=== PATIENT | female | born 1995 | race Caucasian/White ===

== ENCOUNTER 2017-05-15 16:01 | Inpatient (IN) | payer MEDICAID ==
[~2017-05-15] VITALS: Ht 157.5 cm; Wt 83.4 kg
[2017-05-15 16:55] VITALS: Ht 157.5 cm; Wt 83.4 kg
[2017-05-15 16:57] VITALS: BP 162/101; PULSE 81; RESP 20
[2017-05-15 17:15] LABS: BASOPHILS % 0.4 % (0.0-2.0); EOSINOPHILS # 0.1 10^3/ul (0.0-0.5); EOSINOPHILS % 0.7 % (0.0-7.0); HEMATOCRIT 35.2 % (37.0-47.0); HEMOGLOBIN 12.2 g/dl (12.0-16.0); LYMPHOCYTES # 2.1 10^3/ul (0.8-2.9); LYMPHOCYTES % 19.7 % (15.0-51.0); MEAN CORPUSCULAR HEMOGLOBIN 30.7 pg (29.0-33.0); MEAN CORPUSCULAR HGB CONC 34.7 g/dl (32.0-37.0); MEAN CORPUSCULAR VOLUME 88.4 fl (82.0-101.0); MEAN PLATELET VOLUME 12.4 fl (7.4-10.4); MONOCYTE # 0.8 10^3/ul (0.3-0.9); MONOCYTES % 7.6 % (0.0-11.0); NEUTROPHILS % 70.3 % (39.0-77.0); PLATELET COUNT 240 10^3/UL (140-415); RED BLOOD COUNT 3.98 10^6/ul (4.20-5.40); RED CELL DISTRIBUTION WIDTH 14.2 % (11.5-14.5); WHITE BLOOD COUNT 10.7 10^3/ul (4.8-10.8)
[2017-05-15 17:30] LABS: ADD UMIC YES; UR ASCORBIC ACID NEGATIVE (NEGATIVE); UR BACTERIA FEW /HPF (NONE SEEN); UR BILIRUBIN (Dip) NEGATIVE (NEGATIVE); UR BLOOD (Dip) NEGATIVE (NEGATIVE); UR CLARITY CLOUDY (CLEAR); UR COLOR YELLOW (YELLOW); UR GLUCOSE (Dip) NEGATIVE (NEGATIVE); UR KETONES (Dip) NEGATIVE (NEGATIVE); UR LEUKOCYTE ESTERASE (Dip) 1+ Leu/ul (NEGATIVE); UR NITRITE (Dip) NEGATIVE (NEGATIVE); UR RBC 4 /HPF (0-5); UR SPECIFIC GRAVITY (Dip) 1.018 (1.003-1.030); UR SQUAMOUS EPITHELIAL CELL MANY /HPF (FEW); UR TOTAL PROTEIN (Dip) 3+ mg/dl (NEGATIVE); UR UROBILINOGEN (Dip) NEGATIVE (NEGATIVE)
[2017-05-15] MEDS ORDERED: MAGNESIUM SULFATE 4 GM/100 ML 100 ML IVPB ONE (17:30)
[2017-05-15 17:39] LABS: INR 0.99; PROTIME 13.1 Sec (12.2-14.2)
[2017-05-15 17:40] LABS: PARTIAL THROMBOPLASTIN TIME 27.4 Sec (25.0-35.0)
[2017-05-15 17:42] LABS: ALBUMIN 2.9 g/dl (3.3-4.9); ALBUMIN/GLOBULIN RATIO 0.87; BILIRUBIN,INDIRECT 0.1 mg/dl (0-1.1); BILIRUBIN,TOTAL 0.1 mg/dl (0.2-1.3); CALCIUM 8.5 mg/dl (8.4-10.2); CREATININE 0.57 mg/dl (0.44-1.00); POTASSIUM 4.4 mmol/L (3.5-5.1); TOTAL PROTEIN 6.2 g/dl (6.1-8.1)
--- NOTE | 2017-05-15 17:45 | RADRPT ---
PROCEDURE: OB ultrasound for biophysical profile CLINICAL INDICATION: PIH. TECHNIQUE: Multiple sonographic images of the pelvis were obtained. Transabdominal view of the gr avid uterus are available for review. The images were reviewed on a PACS workstation. COMPARISON: OB ultrasound from the same date. FINDINGS: breathing movement = 2/2 tone = 2/2 motion = 2/2 Quantitative amniotic fluid volume = 2/2 KEENA = 8.8 cm Single live intrauterine with cardiac activity at 139 beats per minute. There is a anterior placenta without previa or abruption. IMPRESSION: 1. Single living intrauterine gestation in cephalic position. 2. Biophysical profile = 8/8. 3. KEENA = 8 point a cm. RPTAT: [facility] Physician Maria Esther Date Time Electronically viewed and signed by Physician Maria Esther on 05/15/2017 17:44 /
--- NOTE | 2017-05-15 17:50 | RADRPT ---
PROCEDURE: US OB. CLINICAL INDICATION: PIH. TECHNIQUE: Multiple sonographic images of the pelvis were obtained. Transabdominal imaging only w as performed. The images were reviewed on a PACS workstation. COMPARISON: Biophysical profile from the same date. FINDINGS: There is a single living intrauterine gestation in cephalic position. There is an anterior placenta. There is no evidence of previa. Adequate amnionic fluid is demonstrated. The amniotic fluid index is cm. Active cardiac motion is seen at 139 beats per minute. The biparietal diameter is 8.69 cm. The head circumference is 31.35 cm. The abdominal circumference is . The femur length is 31.9 cm 6.85 cm. Consistent with: 78-sxsx-5-day gestation. The estimated weight is 2692 plus or minus 404 g. IMPRESSION: 1. Single living intrauterine gestation in cephalic position with a mean gestational age by ultraso und of 35 weeks 2 days plus or minus 17-day with estimated date of delivery of 06/17/2017 by ultraso und criteria P RPTAT: [facility] Physician Maria Esther Date Time Electronically viewed and signed by Physician Maria Esther on 05/15/2017 17:49 /
[2017-05-15] MEDS ORDERED: MISOPROSTOL 200 MCG TAB PR PRN (18:00)
[2017-05-15] MEDS ORDERED: CARBOPROST 250 MCG INJ IM PRN (18:00)
[2017-05-15] MEDS ORDERED: METHYLERGONOVINE 0.2 MG INJ IM PRN (18:00)
[2017-05-15] MEDS ORDERED: OXYTOCIN 30 UNITS/LR 500 ML IV PRN (18:00)
[2017-05-15] MEDS ORDERED: CEFAZOLIN 2 GM/50 ML (PMX) 50 ML IV SCH (18:00)
[2017-05-15] MEDS: MAGNESIUM SULFATE 20 GM/500 ML 500 ML IV SCH (18:06)
[2017-05-15] MEDS: LACTATED RINGER'S 1,000 ML IV SCH (18:07)
[2017-05-15] MEDS ORDERED: LACTATED RINGER'S 1,000 ML IV ONE (18:23)
[2017-05-15] MEDS ORDERED: ONDANSETRON 4 MG INJ IV ONE (18:30)
[2017-05-15] MEDS ORDERED: CITRIC ACID/NA CITRATE 30 ML CUP PO ONE (18:30)
--- NOTE | 2017-05-15 19:47 | TRIAGE ---
OB Triage Datetime Report Generated by CPN: 05/15/2017 19:46 Datetime: 05/15/2017 18:32 Assessment Type: Admission Assessment Vaginal Bleeding: None Maternal Assessment Level of Consciousness: Fully Conscious DTR's/Clonus: DTRs 2+; No Clonus Headache: Denies Blurred Vision: No Respiratory Effort: Unlabored; Regular Rhythm; Equal Expansion Breath Sounds, Left: Clear and Equal Breath Sounds, Right: Clear and Equal Nausea/Vomiting: Denies RUQ Epigastric Pain: Denies Facial Edema: None Fall Risk Assessment History of Falling: (0) No Secondary Diagnosis: (0) No Ambulatory Aid: (0) Bedrest/Nurse Assist IV Therapy: (0) No Gait: (0) Normal/Bedrest/Immobile Mental Status: (0) Oriented to Own Ability Fall Score: 0 Fall Risk Score Definition: No Risk: No action required Datetime: 05/15/2017 17:01 Maternal Assessment Level of Consciousness: Fully Conscious DTR's/Clonus: DTRs 2+ Headache: Denies Blurred Vision: Yes Nausea/Vomiting: Denies RUQ Epigastric Pain: Denies Facial Edema: None Labor Evaluation Frequency: 0 Monitor Mode: External Resting Tone [place]: Relaxed Heart Rate FHR Baseline Rate: 130 Monitor Mode: External US FHR Baseline Changes: No Baseline Change Variability: Moderate 6-25 bpm Accelerations: 15X15 Decelerations: None Category: Category I Datetime: 05/15/2017 16:36 Labor Evaluation Frequency: 0 Monitor Mode: External Resting Tone [place]: Relaxed Heart Rate FHR Baseline Rate: 130 Monitor Mode: External US FHR Baseline Changes: No Baseline Change Variability: Moderate 6-25 bpm Accelerations: 15X15 Decelerations: None Category: Category I Datetime: 05/15/2017 16:33 Assessment Type: Triage Maternal Assessment Level of Consciousness: Fully Conscious DTR's/Clonus: DTRs 2+; No Clonus Headache: Denies Blurred Vision: No Respiratory Effort: Unlabored; Regular Rhythm; Equal Expansion Breath Sounds, Left: Clear and Equal Breath Sounds, Right: Clear and Equal Nausea/Vomiting: Denies RUQ Epigastric Pain: Denies Facial Edema: None Fall Risk Assessment History of Falling: (0) No Secondary Diagnosis: (0) No Ambulatory Aid: (0) Bedrest/Nurse Assist IV Therapy: (0) No Gait: (0) Normal/Bedrest/Immobile Mental Status: (0) Oriented to Own Ability Fall Score: 0 Fall Risk Score Definition: No Risk: No action required Datetime: 05/15/2017 16:31 Maternal Assessment Level of Consciousness: Fully Conscious DTR's/Clonus: DTRs 2+ Headache: Denies Blurred Vision: Yes Breath Sounds, Left: Clear and Equal Breath Sounds, Right: Clear and Equal Nausea/Vomiting: Denies RUQ Epigastric Pain: Denies Facial Edema: None Datetime: 05/15/2017 16:22 Time of Arrival: 05/15/2017 16:22 EGA: 35.0 Arrived By: Ambulatory Arrived From: Office Chief Complaint: today is first office visit, bp 160/97. sent to triage to r/o preeclampsia. [facility] ed in antepartum Movement: Present Contractions: Denies/Absent Rupture of Membranes: Denies Vaginal Bleeding: None Vaginal Discharge: Denies Recent Sexual Intercouse: Denies Abdominal Trauma: Not Applicable Patient Complaints: Back Pain Time Provider Notified: 05/15/2017 17:00 Provider Notified: eliza
[2017-05-15 19:49] LABS: ADD UMIC YES; UR ASCORBIC ACID NEGATIVE (NEGATIVE); UR BACTERIA FEW /HPF (NONE SEEN); UR BILIRUBIN (Dip) NEGATIVE (NEGATIVE); UR BLOOD (Dip) 1+ mg/dL (NEGATIVE); UR CLARITY CLEAR (CLEAR); UR COLOR STRAW (YELLOW); UR GLUCOSE (Dip) NEGATIVE (NEGATIVE); UR KETONES (Dip) NEGATIVE (NEGATIVE); UR LEUKOCYTE ESTERASE (Dip) NEGATIVE Leu/ul (NEGATIVE); UR NITRITE (Dip) NEGATIVE (NEGATIVE); UR RBC 2 /HPF (0-5); UR SPECIFIC GRAVITY (Dip) 1.008 (1.003-1.030); UR TOTAL PROTEIN (Dip) 3+ mg/dl (NEGATIVE); UR UROBILINOGEN (Dip) NEGATIVE (NEGATIVE)
[2017-05-15 20:16] LABS: BARBITURATES Negative (NEGATIVE); BENZODIAZEPINES Negative (NEGATIVE); CANNABINOIDS Negative (NEGATIVE); COCAINE Negative (NEGATIVE); OPIATES Negative (NEGATIVE)
[2017-05-15] MEDS ORDERED: LABETALOL HCL 20MG INJ ONE (20:22)
[2017-05-15] MEDS ORDERED: OXYTOCIN 30 UNITS/LR 500 ML IVPB ONE (20:30)
[2017-05-15] MEDS ORDERED: LABETALOL HCL 20MG INJ IV ONE (20:30)
--- NOTE | 2017-05-15 21:16 | HP ---
Date/Time of Note Date/Time of Note DATE: 05/15/17 TIME: 21:02 OB - History Hx of Present Free Text/Dictation 21 y.o primigravida at 35weeks was sent from her OB for further evaluation for elevated B.P which was first time visit for his office for visit. Her previuosprenatal care was limited to only x4 visitbut according to patient ,there wasnt any problem. Initial blood pressure 174/102 +++ proteinuria even cath urine +++protein EFW 2692 magnesium sulfate was initiated MFM (Dr Hassan) was consulted who recommended to deliver Primary section was prepared. Chief Complaint: high B.P Estimated Due Date: Jun 19, 2017 : 1 Para: 0 Spontaneous : 0 Therapeutic : 0 Care: Limited Care Ultrasounds: Other Obstetrical Complications: Gestational Hypertension Past Family/Social History * Past Medical, Surgical, Family and Obstetric Histories reviewed from chart. Blood Type: O+ Rubella: immune RPR/VDRL: Negative GBS Status: Unknown HBsAG: Negative OB Admission Exam Vital Signs Vital Signs Vital Signs Date Time Temp Pulse Resp B/P Pulse Ox O2 Delivery O2 Flow Rate FiO2 05/15/17 16:57 98.0 81 20 162/101 Room Air Physical Exam HEENT: WNL Heart: Rhythm Normal Lungs: Clear, Equal Abdomen: WNL Extremities: Normal Reflexes: Normal Cervical Dilatation: other Effacement: Other Station: Other Membranes: Intact Amniotic Fluid: Unevaluable Heart Rate: 130's Accelerations: Accelerations Present Decelerations: No Decelerations Varibility: Moderate Contractions on Admission: None Last 72 hours Lab Results CBC & BMP 05/15/17 17:00 Liver Function Test 05/15/17 17:00 Alanine Aminotransferase (ALT/SGPT) 33 Albumin 2.9 L Alkaline Phosphatase 166 H Aspartate Amino Transf (AST/SGOT) 33 Direct Bilirubin 0.00 Total Protein 6.2 OB Assessment/Plan Reason for admission: other (high blood pressure) Plan: Section LEXIE MERCER MD May 15, 2017 21:13
[2017-05-15] MEDS ORDERED: FENTAnyl 50 MCG/ML VIAL ONE (21:18)
[2017-05-15] MEDS ORDERED: morphine SULFATE/PF (10 MG/10 ML) INJ ONE (21:18)
[2017-05-15] MEDS ORDERED: METOCLOPRAMIDE 10 MG INJ ONE (21:33)
[2017-05-15] MEDS ORDERED: OXYTOCIN 30 UNITS/LR 500 ML IV ONE (22:19)
[2017-05-15] MEDS ORDERED: ONDANSETRON 4 MG INJ IV PRN (23:00)
[2017-05-15] MEDS ORDERED: NALOXONE (0.4 MG/ML) INJ IV PRN (23:00)
[2017-05-15] MEDS ORDERED: DIPHENHYDRAMINE 50 MG INJ IV PRN (23:00)
[2017-05-15] MEDS ORDERED: TRIMETHOBENZAMIDE 100 MG/ML VIAL IM PRN (23:00)
[2017-05-15] MEDS ORDERED: NALBUPHINE HCL (10 MG/1 ML) INJ IV PRN (23:00)
[2017-05-15] MEDS ORDERED: HYDROmorphONE 1 MG/ML SYG IV PRN ×2 (23:00)
--- NOTE | 2017-05-15 23:13 | OPR ---
Operative Report Planned Procedure Free Text/Dictation 21y.o primigravida at 35w severe PIH Procedure date May 15, 2017 Procedure(s) primary low transverse section Performed by: LEXIE MERCER MD Assisting provider: CARINA GUILLORY MD Anesthesiologist: PHILL BANKS PA-C Anesthesia Type: general spinal Procedure Description Under satisfactory [] anesthesia, the patient was prepped and draped and placed in a supine position, tilted to the left. Pfannenstiel incision was made, carried through the subcutaneous tissue. Bleeders brought under control with electrocautery. Fascia incised to the length of the incision. Rectus muscles from the fascia, divided midline. Peritoneum exposed, entered peritoneal cavity . Exploration of abdomen revealed gravid uterus. . Transverse incision was made in the lower segment of the uterus above the uterovesical reflection.. Amniotic sac ruptured. [revealed clear] amniotic fluid noted. [] Nasal oropharyngeal suction was performed. after the delayed clamping done. The baby was handed to the team for immediate attention. The placenta was delivered manually intact.after cord blood obtained. Uterine cavity was cleaned with dry sponge. Uterus closed in 2 layers using [#1 and ) ch gut] in continuous fashion. Peritoneal cavity irrigated with warm saline. Sponge, needle and instrument count reported to be correct. Abdominal peritoneum closed with och gut[] continuously. Rectus muscle approximated with [och gut]. Fascia closed with #1 vicryl in x2 segment and subcut tissue was irrigated iwith water and this layer wsa approximated with 00 plain gut [], and skin closed with insorb . Estimated blood loss [600]mL. Urine bag contained [400]mL of urine Post-Procedure Findings: Live Baby [male ], Apgars [8] and 9], weight [2155], position [SHERIDAN], [] presentation [vx]cord. Specimen removed: Yes Specimen description placenta Complications: None Pt Condition post procedure: stable Disposition: PACU Physician Certification I, the undersigned physician, hereby certify that I have discussed the procedure described in this consent form with this patient (or the patient's legal healthcare sales representative), including: * The risk and benefits of the procedure; * Any adverse reactions that may reasonably be expected to occur; * Any alternative efficacious methods of treatment which may be medically viable ; * The potential problems that may occur during recuperation; * Potential for blood transfusion and associated risks/benefits; and * Any research or economic interest I may have regarding this treatment. I further certify that the patient/legally responsible person was encouraged to ask question and that all questions were answered. LEXIE MERCER MD May 15, 2017 23:12
[2017-05-16] VITALS (18 sets, daily range): BP systolic 136–175; BP diastolic 69–99; PULSE 94–108; RESP 18–21
[2017-05-16] MEDS ORDERED: LABETALOL 100 MG TAB PO SCH
[2017-05-16] MEDS: KETOROLAC 30 MG INJ IV PRN ×3 (00:08→20:22)
[2017-05-16] MEDS ORDERED: LABETALOL 100 MG TAB PO ONE (01:30)
[2017-05-16] MEDS: OXYTOCIN 30 UNITS/LR 500 ML IV SCH ×7 (02:44→20:30)
[2017-05-16] MEDS ORDERED: METHYLERGONOVINE 0.2 MG INJ IM PRN (03:00)
[2017-05-16] MEDS ORDERED: LANOLIN 7 GM TUBE TOP PRN (03:00)
[2017-05-16] MEDS ORDERED: ZOLPIDEM 5 MG TAB PO PRN (03:00)
[2017-05-16] MEDS ORDERED: MISOPROSTOL 200 MCG TAB PR PRN (03:00)
[2017-05-16] MEDS ORDERED: DIPHENHYDRAMINE 50 MG INJ IV PRN (03:00)
[2017-05-16] MEDS ORDERED: CARBOPROST 250 MCG INJ IM PRN (03:00)
[2017-05-16] MEDS ORDERED: ONDANSETRON 4 MG INJ IV PRN (03:00)
[2017-05-16] MEDS ORDERED: OXYTOCIN 30 UNITS/LR 500 ML IV PRN (03:00)
[2017-05-16] MEDS: MAGNESIUM SULFATE 20 GM/500 ML 500 ML IV SCH ×2 (05:51→14:00)
[2017-05-16] MEDS: LACTATED RINGER'S 1,000 ML IV SCH ×3 (07:15→13:19)
[2017-05-16] MEDS: SENNA/DOCUSATE NA (8.6MG/50MG) TAB PO SCH ×2 (08:31→20:22)
[2017-05-16] MEDS: LABETALOL 100 MG TAB PO SCH ×2 (08:31→20:22)
--- NOTE | 2017-05-16 10:39 | PN ---
Date/Time of Note Date/Time of Note DATE: 05/16/17 TIME: 10:37 OB Subjective Subjective Subjective Post day 1 Patient's blood pressure running on 160s over 90s currently on magnesium sulfate and labetalol 200 mg twice daily we will continue the present treatment , her abdomen soft weak bowel sounds lochia moderate extremities reflexes are within normal will continue treatment for severe PIH. LEONEL JAIME MD May 16, 2017 10:39
[2017-05-16 10:54] LABS: BASOPHILS % 0.2 % (0.0-2.0); EOSINOPHILS % 0.3 % (0.0-7.0); HEMATOCRIT 33.7 % (37.0-47.0); HEMOGLOBIN 11.7 g/dl (12.0-16.0); LYMPHOCYTES # 1.4 10^3/ul (0.8-2.9); LYMPHOCYTES % 11.8 % (15.0-51.0); MEAN CORPUSCULAR HEMOGLOBIN 30.5 pg (29.0-33.0); MEAN CORPUSCULAR HGB CONC 34.7 g/dl (32.0-37.0); MEAN CORPUSCULAR VOLUME 87.8 fl (82.0-101.0); MEAN PLATELET VOLUME 12.3 fl (7.4-10.4); MONOCYTE # 0.7 10^3/ul (0.3-0.9); MONOCYTES % 5.7 % (0.0-11.0); NEUTROPHILS % 81.3 % (39.0-77.0); PLATELET COUNT 232 10^3/UL (140-415); RED BLOOD COUNT 3.84 10^6/ul (4.20-5.40); RED CELL DISTRIBUTION WIDTH 14.2 % (11.5-14.5); WHITE BLOOD COUNT 12.1 10^3/ul (4.8-10.8)
[2017-05-16 11:16] LABS: ALBUMIN 2.4 g/dl (3.3-4.9); ALBUMIN/GLOBULIN RATIO 0.82; BILIRUBIN,INDIRECT 0.1 mg/dl (0-1.1); BILIRUBIN,TOTAL 0.1 mg/dl (0.2-1.3); CREATININE 0.5 mg/dl (0.44-1.00); POTASSIUM 4.2 mmol/L (3.5-5.1); TOTAL PROTEIN 5.3 g/dl (6.1-8.1); URIC ACID 6.5 mg/dl (3.1-7.9)
[2017-05-16 11:49] LABS: ADD UMIC YES; UR ASCORBIC ACID NEGATIVE (NEGATIVE); UR BILIRUBIN (Dip) NEGATIVE (NEGATIVE); UR BLOOD (Dip) 2+ mg/dL (NEGATIVE); UR CLARITY CLEAR (CLEAR); UR COLOR YELLOW (YELLOW); UR GLUCOSE (Dip) NEGATIVE (NEGATIVE); UR KETONES (Dip) NEGATIVE (NEGATIVE); UR LEUKOCYTE ESTERASE (Dip) NEGATIVE Leu/ul (NEGATIVE); UR MUCUS FEW /HPF (NONE SEEN); UR NITRITE (Dip) NEGATIVE (NEGATIVE); UR RBC 16 /HPF (0-5); UR TOTAL PROTEIN (Dip) 2+ mg/dl (NEGATIVE); UR UROBILINOGEN (Dip) NEGATIVE (NEGATIVE)
[2017-05-16 12:01] LABS: INR 1.05; PROTIME 13.7 Sec (12.2-14.2); PT RATIO 1.1
[2017-05-16 13:20] LABS: FIBRIN SPLIT PRODUCT <10 ug/ml (<10)
[2017-05-16] MEDS ORDERED: OXYCODONE/ACETAMINOPHEN (5/325) TAB PO PRN (21:30)
[2017-05-17] VITALS (7 sets, daily range): BP systolic 118–155; BP diastolic 75–96; PULSE 82–90; RESP 14–20
[2017-05-17] MEDS: OXYTOCIN 30 UNITS/LR 500 ML IV SCH ×6 (00:30→16:30)
[2017-05-17] MEDS: LACTATED RINGER'S 1,000 ML IV SCH ×3 (01:00→17:00)
[2017-05-17] MEDS: IBUPROFEN 600 MG TAB PO SCH ×5 (05:36→23:55)
[2017-05-17] MEDS: SENNA/DOCUSATE NA (8.6MG/50MG) TAB PO SCH ×2 (08:47→20:44)
[2017-05-17] MEDS: LABETALOL 100 MG TAB PO SCH ×2 (08:47→20:47)
--- NOTE | 2017-05-17 10:53 | PN ---
Date/Time of Note Date/Time of Note DATE: 05/17/17 TIME: 10:51 OB Subjective Subjective Subjective May 172016 Post C section day 2 Doing Well Afebrile Ambulatory Chest Clear Breasts are soft , Nipples are intact Abdomen is soft Fundus is firm Moderate amount of lochia Incision is clean ,No evidence of infection No calf tenderness No ankle edema Mag sulfate was discontinued Laboratory Tests Test 05/16/17 11:15 05/16/17 11:25 05/16/17 18:15 Urine Color YELLOW Urine Clarity CLEAR Urine pH 6.0 Urine Specific [place] 1.020 Urine Ketones NEGATIVEmg/dL Urine Nitrite NEGATIVEmg/dL Urine Bilirubin NEGATIVEmg/dL Urine Urobilinogen NEGATIVEmg/dL Urine Leukocyte Esterase NEGATIVELeu/ul Urine Microscopic RBC 16/HPF Urine Microscopic WBC 7/HPF Urine Hyaline Casts FEW/HPF Urine Granular Casts FEW/HPF Urine Mucus FEW/HPF Urine Hemoglobin 2+mg/dL Urine Glucose NEGATIVEmg/dL Urine Total Protein 2+mg/dl Prothrombin Time 13.7Sec Prothrombin Time Ratio 1.1 INR International Normalized Ratio 1.05 Activated Partial Thromboplast Time 28.0Sec Fibrinogen 581.0mg/dl Plasma Fibrin Degradation Products <10ug/ml Magnesium Level 5.0mg/dl 5.6mg/dl Current Medications Medications (Trade) Dose Ordered Sig/Jonathan Route PRN Reason Start Time Stop Time Status Last Admin Dose Admin Lactated Ringer's 1,000 ml @ 125 mls/hr Q8H IV 05/15/17 17:00 05/16/17 13:19 Magnesium Sulfate 100 ml @ 25 mls/hr ONCE ONCE IVPB 05/15/17 17:30 05/15/17 21:29 DC 05/15/17 17:37 Magnesium Sulfate 500 ml @ 50 mls/hr Q10H IV 05/15/17 17:30 05/16/17 21:37 DC 05/16/17 14:00 Cefazolin Sodium/ Dextrose 50 ml @ 100 mls/hr ONCE IV 05/15/17 18:00 05/16/17 02:40 DC Oxytocin/Lactated Ringer's 500 ml @ 0 mls/hr ONCE PRN IV For Hemorrhage Management 05/15/17 18:00 05/16/17 02:40 DC Methylergonovine Maleate (Methergine) 0.2 mg ONCE PRN IM VAGINAL BLEEDING 05/15/17 18:00 05/16/17 02:40 DC Carboprost Tromethamine (Hemabate) 250 mcg ONCE PRN IM VAGINAL BLEEDING 05/15/17 18:00 05/16/17 02:40 DC Misoprostol 1000 mcg 1,000 mcg ONCE PRN NC VAGINAL BLEEDING 05/15/17 18:00 05/16/17 02:40 DC Lactated Ringer's (Lr) 1,000 ml @ 1,000 mls/hr Q1H ONCE IV 05/15/17 18:23 05/15/17 19:22 DC Ondansetron HCl (Zofran Inj) 4 mg pre-procedure ONCE IV 05/15/17 18:30 05/15/17 18:34 DC 05/15/17 20:33 Citric Acid/ Sodium Citrate 30 ml 30 ml PRE-OP ONCE PO 05/15/17 18:30 05/15/17 18:34 DC 05/15/17 20:29 Oxytocin/Lactated Ringer's 500 ml @ 125 mls/hr ONCE ONCE IVPB 05/15/17 20:30 05/16/17 00:29 DC 05/15/17 23:49 Oxytocin/Lactated Ringer's 500 ml @ 125 mls/hr Q4H IV 05/15/17 20:30 05/16/17 05:54 Labetalol HCl (Labetalol) 20 mg STK-MED ONCE .ROUTE 05/15/17 20:22 05/15/17 20:23 DC Labetalol HCl (Labetalol) 20 mg ONCE ONCE IV 05/15/17 20:30 05/15/17 20:31 DC 05/15/17 20:29 Morphine Sulfate (Duramorph) 10 mg STK-MED ONCE .ROUTE 05/15/17 21:18 05/15/17 21:19 DC Fentanyl (Sublimaze) 100 mcg STK-MED ONCE .ROUTE 05/15/17 21:18 05/15/17 21:19 DC Metoclopramide HCl 10 mg 10 mg STK-MED ONCE .ROUTE 05/15/17 21:33 05/15/17 21:34 DC Oxytocin/Lactated Ringer's 500 ml @ ud STK-MED ONCE IV 05/15/17 22:19 05/15/17 22:20 DC Naloxone HCl (Narcan) 0.1 mg Q2M PRN IV FOR RESP RATE 8 OR LESS 05/15/17 23:00 05/16/17 21:29 DC Ketorolac Tromethamine (Toradol) 30 mg Q6H PRN IV PAIN 05/15/17 23:00 05/16/17 21:29 DC 05/16/17 20:22 Hydromorphone HCl (Dilaudid) 0.2 mg Q3H PRN IV PAIN LEVEL 1-5 05/15/17 23:00 05/16/17 21:29 DC Hydromorphone HCl (Dilaudid) 0.4 mg Q3H PRN IV PAIN LEVEL 6-10 05/15/17 23:00 05/16/17 21:29 DC Diphenhydramine HCl (Benadryl) 25 mg Q6H PRN IV ITCHING 05/15/17 23:00 05/16/17 21:29 DC Nalbuphine HCl (Nubain) 5 mg ONCE PRN IV ITCHING 05/15/17 23:00 05/16/17 21:29 DC Ondansetron HCl (Zofran Inj) 4 mg Q6H PRN IV NAUSEA AND/OR VOMITING 05/15/17 23:00 05/16/17 21:29 DC Trimethobenzamide HCl (Tigan) 200 mg Q6H PRN IM NAUSEA AND/OR VOMITING 05/15/17 23:00 05/16/17 21:29 DC Miscellaneous Information (* Miscellaneous Pharmacy Order) Duramorph: 0.2 mg Spi... GIVEN ONCE XX 05/15/17 21:30 05/15/17 22:45 DC Labetalol HCl (Normodyne) 100 mg BID PO 05/16/17 00:00 05/16/17 01:25 DC 05/15/17 23:50 Labetalol HCl (Normodyne) 200 mg BID PO 05/16/17 09:00 05/17/17 08:47 Labetalol HCl (Normodyne) 100 mg ONCE ONCE PO 05/16/17 01:30 05/16/17 01:31 DC 05/16/17 01:32 Oxycodone/ Acetaminophen (Percocet (5/ 325)) 1 tab Q4H PRN PO PAIN LEVEL 4-6 05/16/17 21:30 Oxycodone/ Acetaminophen (Percocet (5/ 325)) 2 tab Q4H PRN PO PAIN LEVEL 7-10 05/16/17 21:30 Ibuprofen (Motrin) 600 mg Q6 PO 05/17/17 00:00 05/17/17 05:36 Simethicone (Mylicon) 160 mg Q8H PRN PO DISTENSION/GAS/BLOATING 05/16/17 03:00 05/17/17 06:06 Senna/Docusate Sodium (Senokot-S) 1 tab BID PO 05/16/17 09:00 05/17/17 08:47 Lanolin (Qoq-N-Zmwmiy) 1 applic BEDSIDE MEDICATION PRN TOP BEDSIDE FOR BIBIANA TO NIPPLES 05/16/17 03:00 Diphtheria/ Tetanus/Acell Pertussis 0.5 ml 0.5 ml ONCE ONCE IM* 05/18/17 09:00 05/18/17 09:01 Oxytocin/Lactated Ringer's 500 ml @ 0 mls/hr ONCE PRN IV For Hemorrhage Management 05/16/17 03:00 Methylergonovine Maleate (Methergine) 0.2 mg ONCE PRN IM VAGINAL BLEEDING 05/16/17 03:00 Carboprost Tromethamine (Hemabate) 250 mcg ONCE PRN IM VAGINAL BLEEDING 05/16/17 03:00 Misoprostol (Cytotec) 1,000 mcg ONCE PRN NC VAGINAL BLEEDING 05/16/17 03:00 Diphenhydramine HCl (Benadryl) 25 mg Q6H PRN IV PRURITUS 05/16/17 03:00 Ondansetron HCl (Zofran Inj) 4 mg Q6H PRN IV NAUSEA AND/OR VOMITING 05/16/17 03:00 Zolpidem Tartrate (Ambien) 5 mg HS MAY REPEAT X 1 PRN PO INSOMNIA 05/16/17 03:00 New born is doing well, Breast feeding CARINA GUILLORY MD May 17, 2017 10:53
[2017-05-17] MEDS: OXYCODONE/ACETAMINOPHEN (5/325) TAB PO PRN (20:14)
[2017-05-18 04:00] VITALS: BP 154/91; PULSE 76; RESP 19
[2017-05-18] MEDS: IBUPROFEN 600 MG TAB PO SCH ×4 (05:39→23:50)
[2017-05-18] MEDS: LACTATED RINGER'S 1,000 ML IV SCH ×3 (07:00→17:00)
[2017-05-18] MEDS: OXYTOCIN 30 UNITS/LR 500 ML IV SCH ×5 (07:00→20:30)
[2017-05-18 08:00] VITALS: BP 153/88; PULSE 89; RESP 16
[2017-05-18] MEDS ORDERED: DIPHTH/TET/ACEL PERTUSS (ADULT) 0.5 ML VIAL IM* ONE (09:00)
[2017-05-18] MEDS: SENNA/DOCUSATE NA (8.6MG/50MG) TAB PO SCH ×2 (09:09→21:19)
[2017-05-18] MEDS: LABETALOL 100 MG TAB PO SCH ×2 (09:09→21:20)
--- NOTE | 2017-05-18 10:15 | PD.PPDC ---
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 Patient Condition: Stable Diet Diet: Special Diet Activity/Restrictions Activity: Normal Activity May Shower Restrictions: No Exercising No Lifting No Driving No Sexual Activity Nothing in the Vagina No [place] No Tampons, douche Wound/Drain Care Instructions Wound/Drain Care Instructions: Remove Steri Strips in 1 week Follow-up Follow-up with Physician: 1, Week/Weeks Provider Information: Post day 3 Vital signs stable her blood pressures running in the range of 120s over 75 to 150s over 90 still has 2+ edema she is being discharged with prescription of labetalol 100 mg twice daily and follow-up with the clinic in 1 week 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
--- NOTE | 2017-05-18 10:22 | DS ---
Date/Time of Note Date/Time of Note DATE: 05/18/17 TIME: 10:16 Discharge Summary Admission/Discharge Info Admit Date/Time May 15, 2017 at 17:00 Discharge Date/Time May 18, 2017 at 11 AM Afebrile her blood pressures running from 120 over 70s-150s over 90 she still has 2+ ankle edema denies headache blurry vision epigastric pain, her abdomen is soft good bowel sounds had normal bowel movement, she is discharged with a prescription of labetalol 100 mg twice daily with the specific instructions recommended to make appointment to be seen at the clinic in 1 week Discharge Diagnosis Post primary date 3 Patient Condition: Good Procedures Primary Hx of Present Illness 36-1/2 weeks diagnosed with -induced hypertension Hospital Course Satisfactory recovery being discharged in good condition Follow-up Plan Post recommendation given advised to make appointment to be seen at the clinic in 1week instruction for how to monitor her blood pressure given Primary Care Provider Care Physician No Primary Time spent on discharge: < 30 minutes LEONEL JAIME MD May 18, 2017 10:22
[2017-05-18 12:00] VITALS: BP 143/82; PULSE 81; RESP 16
[2017-05-18 16:15] VITALS: BP 168/88; PULSE 78; RESP 16
[2017-05-18] MEDS ORDERED: NIFEdipine (XL) 30 MG TAB PO ONE (17:00)
[2017-05-18 19:55] VITALS: BP 163/73; PULSE 79; RESP 19
[2017-05-18 22:30] VITALS: BP 129/71; PULSE 81; RESP 19
[2017-05-19 03:30] VITALS: BP 131/80; PULSE 88; RESP 19
[2017-05-19] MEDS: LACTATED RINGER'S 1,000 ML IV SCH ×2 (04:28→08:54)
[2017-05-19] MEDS: OXYTOCIN 30 UNITS/LR 500 ML IV SCH ×4 (04:28→12:30)
[2017-05-19] MEDS: IBUPROFEN 600 MG TAB PO SCH ×3 (05:31→17:38)
[2017-05-19 08:30] VITALS: BP 135/77; PULSE 94; RESP 17
[2017-05-19] MEDS: LABETALOL 100 MG TAB PO SCH (08:53)
[2017-05-19] MEDS: SENNA/DOCUSATE NA (8.6MG/50MG) TAB PO SCH (08:53)
[2017-05-19 10:00] VITALS: BP 120/71; PULSE 98
[2017-05-19 16:00] VITALS: BP 148/88; PULSE 87; RESP 18
[2017-05-19] MEDS: OXYCODONE/ACETAMINOPHEN (5/325) TAB PO PRN (16:15)
== END 2017-05-19 19:19 | disposition home or self-care (01) | DRG 766 ==
LOC: OBT 16:01 → L-D 16:01 → OBG 16:11 → OBT 17:00 → OBG 17:00 → L-D 18:00 → PP1 05-16 02:22
PROVIDERS: ADMIT Obstetrics & Gynecology; ATTEND Obstetrics & Gynecology
PROC: 3E033VJ Introduction of Other Hormone into Peripheral Vein, Percutaneous Approach (ICD-10-PCS; 2017-05-15)
PROC: 10D00Z1 Extraction of Products of Conception, Low, Open Approach (ICD-10-PCS; principal; 2017-05-15 20:30)
DX: O13.4 Gestational [pregnancy-induced] hypertension without significant proteinuria, complicating childbirth (principal); O60.14X0 Preterm labor third trimester with preterm delivery third trimester, not applicable or unspecified; O99.214 Obesity complicating childbirth; Z68.33 Body mass index [BMI] 33.0-33.9, adult; O12.14 Gestational proteinuria, complicating childbirth; Z3A.35 35 weeks gestation of pregnancy; Z37.0 Single live birth
CPT/HCPCS: 76815; 76818; 80053; 80307; 81001; 83735; 84560; 85025; 85362; 85384; 85610; 85730; 86592; 86706; 86850; 86900; 86901; 88307; 90715; 94760; 96365; 96366; 99464; G0463; J0690; J1885; J2274; J2405; J2590; J2765; J3010; J3475; J7120